=== PATIENT | male | born 1995 | race Hispanic/Latino ===

== ENCOUNTER 2017-09-05 22:18 | Inpatient (IN) | payer OTHER ==
[~2017-09-05] VITALS: Ht 172.7 cm; Wt 61.2 kg
[2017-09-05] MEDS ORDERED: ACETAMINOPHEN 325 MG TAB PO ONE (22:45)
[2017-09-05] MEDS ORDERED: SODIUM CHLORIDE 0.9% 1000ML 1,000 ML IV ONE (22:45)
[2017-09-05 23:00] LABS: BASOPHILS # (AUTO) 0.1 (0.0-0.1); EOSINOPHILS # (AUTO) 0.1 (0.0-0.4); EOSINOPHILS % 1.3 % (0.0-6.0); HEMATOCRIT 38.6 % (38.2-49.6); LYMPHOCYTES # (AUTO) 2.4 (1.0-3.2); LYMPHOCYTES % 37.4 % (18.0-39.1); MEAN CORPUSCULAR HEMOGLOBIN 29.6 pg (28-32); MEAN CORPUSCULAR HGB CONC 33.7 g/dL (31-35); MEAN CORPUSCULAR VOLUME 87.9 fL (81-99); MONOCYTES # (AUTO) 0.5 (0.2-0.8); MONOCYTES % 7.5 % (4.4-11.3); NEUTROPHILS # (AUTO) 3.3 (2.1-6.9); NEUTROPHILS % 52.5 % (38.7-80.0); PLATELET COUNT 589 x10e3/uL (140-360); RED BLOOD COUNT 4.39 x10e6/uL (4.3-5.7); RED CELL DISTRIBUTION WIDTH 14.9 % (11.7-14.4)
--- NOTE | 2017-09-05 23:16 | Diagnostic Imaging Report ---
EXAMINATION: CHEST 2 VIEWS INDICATION: Shortness of breath COMPARISON: None FINDINGS: TUBES and LINES: None. LUNGS: Lungs are well inflated. Lungs are clear. There is no evidence of pneumonia or pulmonary edema. PLEURA: No pleural effusion or pneumothorax. HEART AND MEDIASTINUM: The cardiomediastinal silhouette is unremarkable. BONES AND SOFT TISSUES: No acute osseous lesion. Soft tissues are unremarkable. UPPER ABDOMEN: No free air under the diaphragm. IMPRESSION: No acute thoracic abnormality. Signed by: Dr. Miguel Angel Medrano M.D. on 09/05/2017 11:13 PM
[2017-09-05 23:30] LABS: ALANINE AMINOTRANSFERASE 27 IU/L (0-55); ALBUMIN 4.1 g/dL (3.5-5.0); ALBUMIN/GLOBULIN RATIO 0.9 (0.8-2.0); ALKALINE PHOSPHATASE 117 IU/L (40-150); ANION GAP 15.2 mmol/L (8-16); BLOOD UREA NITROGEN 10 mg/dL (7-26); BUN/CREATININE RATIO 14 (6-25); CALCIUM 10.4 mg/dL (8.4-10.2); CARBON DIOXIDE 29 mmol/L (22-29); CHLORIDE 104 mmol/L (98-107); CREATININE, SERUM 0.74 mg/dL (0.72-1.25); EST GLOMERULAR FILTRATION RATE > 60 ML/MIN (60-); GLUCOSE 112 mg/dL (74-118); POTASSIUM 4.2 mmol/L (3.5-5.1); SODIUM 144 mmol/L (136-145)
[2017-09-05] MEDS ORDERED: IOPAMIDOL 370 MG/ML 200 ML INFUS..BTL INJ ONE (23:59)
[2017-09-05] MEDS ORDERED: SODIUM CHLORIDE 0.9% 50ML 50 ML ONE (23:59)
[2017-09-06] VITALS (9 sets, daily range): BP systolic 106–169; BP diastolic 66–98
[2017-09-06 00:05] LABS: ANISOCYTOSIS SLIGHT; EOSINOPHILS % (MANUAL) 3 % (0-7); LYMPHOCYTES % (MANUAL) 50 % (19-48); MONOCYTES % (MANUAL) 1 % (3.4-9.0); NEUTROPHILS % (MANUAL) 46 % (40-74); PLATELET ESTIMATE MODERATELY INCREASED; PLATELET MORPHOLOGY COMMENT NORMAL; RBC MORPHOLOGY COMMENT NORMAL
--- NOTE | 2017-09-06 01:29 | Diagnostic Imaging Report ---
ADDENDUM #1 EXAM: CT Chest WITH contrast 09/06/2017 12:02 AM INDICATION: Pulmonary embolism. COMPARISON: None TECHNIQUE: Chest was scanned utilizing a multidetector helical scanner from the lung apex through the level of the adrenal glands without administration of IV contrast. Coronal and sagittal reformations were obtained. Pulmonary embolism protocol was performed. IV CONTRAST: 73 mL of Isovue-370 RADIATION DOSE: Total DLP: 505.40 mGy*cm Estimated effective dose: (DLP x 0.014 x size factor) mSv COMPLICATIONS: None FINDINGS: LINES/ TUBES: None. LUNGS AND AIRWAYS: Right upper lobe airspace opacity best visualized on series 3, image 48 compatible with pneumonia. There is a cavitary lesion in the left lower lobe with thick irregular prado measuring approximately 1.8 cm in diameter. Additional similar in appearance. There are lesions are noted in the left lower lobe best seen on series 3, image 74 Airways are normal. PLEURA: The pleural spaces are clear. HEART AND MEDIASTINUM: The thyroid gland is normal. No mediastinal, hilar or axillary lymphadenopathy. The heart is normal in size.. There is no pericardial effusion. UPPER ABDOMEN: Limited non-contrast views of the upper abdomen show no abnormality within the visualized liver, spleen, pancreas, or kidneys. The adrenal glands are normal. BONES: The visualized bony thorax is within normal limits. SOFT TISSUES: Unremarkable. IMPRESSION: 1. No evidence of acute pulmonary embolism. 2. Findings in the right upper lobe are compatible with pneumonia. 3. Cavitary lesions in the left lower lobe are suspicious for atypical mycobacterial infection. Tuberculosis cannot be excluded. Consider isolation. Follow-up after treatment is recommended Signed by: Dr. Miguel Angel Medrano M.D. on 09/06/2017 2:23 AM ORIGINAL REPORT EXAM: CT Chest WITH contrast 09/06/2017 12:02 AM INDICATION: Pulmonary embolism. COMPARISON: None TECHNIQUE: Chest was scanned utilizing a multidetector helical scanner from the lung apex through the level of the adrenal glands without administration of IV contrast. Coronal and sagittal reformations were obtained. Pulmonary embolism protocol was performed. IV CONTRAST: 73 mL of Isovue-370 RADIATION DOSE: Total DLP: 505.40 mGy*cm Estimated effective dose: (DLP x 0.014 x size factor) mSv COMPLICATIONS: None FINDINGS: LINES/ TUBES: None. LUNGS AND AIRWAYS: Right upper lobe airspace opacity best visualized on series 3, image 48 compatible with pneumonia. There is a cavitary lesion in the left lower lobe with thick irregular prado measuring approximately 1.8 cm in diameter. Additional similar in appearance. There are lesions are noted in the left lower lobe best seen on series 3, image 74 Airways are normal. PLEURA: The pleural spaces are clear. HEART AND MEDIASTINUM: The thyroid gland is normal. No mediastinal, hilar or axillary lymphadenopathy. The heart is normal in size.. There is no pericardial effusion. UPPER ABDOMEN: Limited non-contrast views of the upper abdomen show no abnormality within the visualized liver, spleen, pancreas, or kidneys. The adrenal glands are normal. BONES: The visualized bony thorax is within normal limits. SOFT TISSUES: Unremarkable. IMPRESSION: 1. Findings in the right upper lobe are compatible with pneumonia. 2. Cavitary lesions in the left lower lobe are suspicious for atypical mycobacterial infection. Tuberculosis cannot be excluded. Consider isolation. Follow-up after treatment is recommended Signed by: Dr. Miguel Angel Medrano M.D. on 09/06/2017 1:26 AM
[2017-09-06] MEDS ORDERED: ACETAMINOPHEN 325 MG TAB PO PRN (03:15)
[2017-09-06] MEDS ORDERED: MEROPENEM 1 GM VIAL ONE (03:27)
[2017-09-06] MEDS: SODIUM CHLORIDE 0.9% 1000ML 1,000 ML IV SCH ×3 (03:27→23:25)
[2017-09-06 03:55] LABS: CREATINE KINASE MB 0.5 ng/mL (0-5.0)
[2017-09-06] MEDS ORDERED: MEROPENEM 1GM 100 ML IV SCH (06:00)
[2017-09-06 10:01] LABS: CREATINE KINASE 49 IU/L (30-200)
[2017-09-06] MEDS: ALBUTEROL/IPRATROPIUM 3 ML NEB NEB SCH ×2 (13:25→19:37)
[2017-09-06] MEDS: MEROPENEM 1 GM VIAL IV SCH ×2 (13:33→21:14)
--- NOTE | 2017-09-06 14:15 | Diagnostic Imaging Report ---
PROCEDURE:X-RAY MODIFIED BARIUM SWALLOW COMPARISON:None. INDICATIONS:Dysphagia, pneumonia DISCUSSION:Fluoroscopic examination was performed in conjunction with speech pathology, during swallowing of a variety of thin and thick liquid consistencies. Examination showed premature spillage over the base of the tongue and vallecula with all consistencies. Premature spillage to the piriform sinus was noted within liquids and juice portion of mixed mechanical soft diet. No aspiration or penetration. Moderate vallecular and piriform sinus residue is noted with thin pure. CONCLUSION:No penetration or aspiration. Please see the report from speech pathology for complete details. Devang Rodríguez M.D. Dictated by: Devang Rodríguez M.D. on 09/06/2017 at 14:20 Electronically approved by: Devang Rodríguez M.D. on 09/06/2017 at 14:20
[2017-09-06 14:18] LABS: HIV 1&2 AB SCREEN NON-REACTIVE (NONREACTIVE)
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
[2017-09-06 18:26] LABS: CREATINE KINASE 56 IU/L (30-200)
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
[2017-09-06] MEDS: METHYLPREDNISOLONE SOD SUCC 40 MG/ML VIAL IV SCH (21:14)
[2017-09-07] VITALS (38 sets, daily range): BP systolic 93–138; BP diastolic 56–102
[2017-09-07] MEDS: ALBUTEROL/IPRATROPIUM 3 ML NEB NEB SCH ×4 (01:05→19:05)
[2017-09-07] MEDS: MEROPENEM 1 GM VIAL IV SCH ×3 (05:04→22:00)
[2017-09-07 05:38] LABS: BASOPHILS % 0.1 % (0.0-1.0); EOSINOPHILS % 0.1 % (0.0-6.0); HEMATOCRIT 36.9 % (38.2-49.6); HEMOGLOBIN 12.1 g/dL (14.0-18.0); LYMPHOCYTES # (AUTO) 1.4 (1.0-3.2); LYMPHOCYTES % 20.3 % (18.0-39.1); MEAN CORPUSCULAR HEMOGLOBIN 29.4 pg (28-32); MEAN CORPUSCULAR HGB CONC 32.8 g/dL (31-35); MEAN CORPUSCULAR VOLUME 89.8 fL (81-99); MONOCYTES # (AUTO) 0.1 (0.2-0.8); MONOCYTES % 1.7 % (4.4-11.3); NEUTROPHILS # (AUTO) 5.4 (2.1-6.9); NEUTROPHILS % 77.5 % (38.7-80.0); PLATELET COUNT 541 x10e3/uL (140-360); RED BLOOD COUNT 4.11 x10e6/uL (4.3-5.7); RED CELL DISTRIBUTION WIDTH 14.8 % (11.7-14.4)
[2017-09-07 05:55] LABS: INR 1.21; PROTHROMBIN TIME 14.4 seconds (11.9-14.5)
[2017-09-07 05:56] LABS: PARTIAL THROMBOPLASTIN TIME 29.9 seconds (23.8-35.5)
[2017-09-07 06:03] LABS: ALANINE AMINOTRANSFERASE 19 IU/L (0-55); ALBUMIN 3.5 g/dL (3.5-5.0); ALKALINE PHOSPHATASE 105 IU/L (40-150); ANION GAP 11.8 mmol/L (8-16); BLOOD UREA NITROGEN 10 mg/dL (7-26); BUN/CREATININE RATIO 14 (6-25); CALCIUM 9.9 mg/dL (8.4-10.2); CARBON DIOXIDE 27 mmol/L (22-29); CHLORIDE 107 mmol/L (98-107); EST GLOMERULAR FILTRATION RATE > 60 ML/MIN (60-); GLUCOSE 108 mg/dL (74-118); POTASSIUM 3.8 mmol/L (3.5-5.1); SODIUM 142 mmol/L (136-145)
[2017-09-07 06:12] LABS: ALBUMIN/GLOBULIN RATIO 0.9 (0.8-2.0)
[2017-09-07] MEDS ORDERED: LIDOCAINE HCL 4% 50 ML BTL ONE (08:22)
[2017-09-07] MEDS ORDERED: EPINEPHRINE HCL INJ 1 MG/ML AMP ONE (08:22)
[2017-09-07] MEDS ORDERED: LIDOCAINE HCL 2% 30 ML TUBE ONE (08:23)
[2017-09-07] MEDS ORDERED: OXYMETAZOLINE HCL 0.05% NAS 1 SPRAY BTL ONE (08:23)
[2017-09-07] MEDS: METHYLPREDNISOLONE SOD SUCC 40 MG/ML VIAL IV SCH (08:27)
--- NOTE | 2017-09-07 10:17 | Diagnostic Imaging Report ---
PROCEDURE: A single AP view of the chest. COMPARISON: Chest radiograph 09/05/[address] 09/06/17. INDICATIONS: POST BRONCHOSCOPY FINDINGS: Lines/tubes: None. Lungs: No evidence of lobar consolidation or pulmonary edema. Cavitary left lower lobe lesion and right upper lobe pneumonia are better characterized on CT From 09/06/17. Pleura: There is no pleural effusion or pneumothorax. Heart and mediastinum: The cardiomediastinal silhouette is unchanged. Bones: No acute bony abnormality. IMPRESSION: No evidence of pneumothorax post bronchoscopy. Cavitary left lower lobe lesion and right upper lobe pneumonia are better characterized on CT From 09/06/17. Dictated by: HENNY WOODARD M.D. on 09/07/2017 at 10:22 Electronically approved by: HENNY WOODARD M.D. on 09/07/2017 at 10:22
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
[2017-09-07] MEDS ORDERED: LIDOCAINE HCL 2% LOCAL INJ 5 ML SDV VIAL INJ ONE ×2 (11:45→14:57)
[2017-09-07] MEDS ORDERED: DEXAMETHASONE SOD PHOS INJ 4 MG/ML VIAL ONE ×2 (11:45→14:57)
[2017-09-07] MEDS ORDERED: SEVOFLURANE INHAL SOLN 250 ML PEN BTL ONE (11:45)
[2017-09-07] MEDS ORDERED: ONDANSETRON HCL INJ 2 MG/ML VIAL ONE (11:45)
[2017-09-07] MEDS ORDERED: PROPOFOL IV EMULSION 10 MG/ML 20 ML VIAL ONE ×2 (11:45→14:57)
[2017-09-07] MEDS ORDERED: MICROFIBRILLER COLLAGEN HEMOSTAT 1 GM POWDER TP ONE (15:08)
[2017-09-07] MEDS ORDERED: LIDOCAINE 1% W/EPINEPHRINE 20 ML VIAL ONE (15:08)
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
[2017-09-07] MEDS ORDERED: MIDAZOLAM HCL 2 MG/2 ML VIAL ONE ×2 (19:27→19:38)
[2017-09-07] MEDS ORDERED: KETAMINE HCL INJ 50 MG/ML 10 ML VIAL ONE ×2 (19:27→19:38)
[2017-09-07] MEDS ORDERED: FENTANYL CITRATE/PF 100MCG/2 ML INJ ONE (19:38)
[2017-09-07] MEDS: SODIUM CHLORIDE 0.9% 1000ML 1,000 ML IV SCH (22:00)
[2017-09-08] VITALS (46 sets, daily range): BP systolic 93–122; BP diastolic 57–82
[2017-09-08] MEDS: ALBUTEROL/IPRATROPIUM 3 ML NEB NEB SCH ×4 (01:50→19:20)
[2017-09-08] MEDS: SODIUM CHLORIDE 0.9% 1000ML 1,000 ML IV SCH ×2 (03:33→13:00)
[2017-09-08] MEDS: MEROPENEM 1 GM VIAL IV SCH ×3 (05:44→21:32)
[2017-09-08 05:48] LABS: BASOPHILS % 0.2 % (0.0-1.0); HEMATOCRIT 37.4 % (38.2-49.6); HEMOGLOBIN 12.6 g/dL (14.0-18.0); LYMPHOCYTES # (AUTO) 2.3 (1.0-3.2); LYMPHOCYTES % 18.1 % (18.0-39.1); MEAN CORPUSCULAR HEMOGLOBIN 29.7 pg (28-32); MEAN CORPUSCULAR HGB CONC 33.7 g/dL (31-35); MEAN CORPUSCULAR VOLUME 88.2 fL (81-99); MONOCYTES # (AUTO) 0.9 (0.2-0.8); MONOCYTES % 6.6 % (4.4-11.3); NEUTROPHILS # (AUTO) 9.7 (2.1-6.9); NEUTROPHILS % 74.8 % (38.7-80.0); PLATELET COUNT 558 x10e3/uL (140-360); RED BLOOD COUNT 4.24 x10e6/uL (4.3-5.7); RED CELL DISTRIBUTION WIDTH 14.8 % (11.7-14.4)
[2017-09-08 06:04] LABS: ANION GAP 14.6 mmol/L (8-16); BLOOD UREA NITROGEN 14 mg/dL (7-26); BUN/CREATININE RATIO 19 (6-25); CALCIUM 10.1 mg/dL (8.4-10.2); CARBON DIOXIDE 26 mmol/L (22-29); CHLORIDE 105 mmol/L (98-107); CREATININE, SERUM 0.72 mg/dL (0.72-1.25); EST GLOMERULAR FILTRATION RATE > 60 ML/MIN (60-); GLUCOSE 96 mg/dL (74-118); POTASSIUM 3.6 mmol/L (3.5-5.1); SODIUM 142 mmol/L (136-145)
--- NOTE | 2017-09-08 06:55 | Diagnostic Imaging Report ---
ADDENDUM #1 EXAMINATION: CHEST SINGLE (PORTABLE) INDICATION: Pneumonia. COMPARISON: 09/07/2017 FINDINGS: TUBES and LINES: Tracheostomy tube is present with tip just 0.5 cm above the dany. Repositioning is recommended. LUNGS: Complete collapse of the left lung the right lung is clear. There is no evidence of pneumonia or pulmonary edema. PLEURA: Large left pneumothorax HEART AND MEDIASTINUM: The cardiomediastinal silhouette is remarkable for air along the mediastinum and supraclavicular soft tissues.. BONES AND SOFT TISSUES: No acute osseous lesion. Supraclavicular emphysematous changes. UPPER ABDOMEN: No free air under the diaphragm. Metallic densities in the left upper quadrant IMPRESSION: 1. Status post intubation. Endotracheal tube should be repositioned. 2. Large left pneumothorax with evidence of pneumomediastinum and supraclavicular subcutaneous emphysema 3. Dr. Marrufo was paged at 6:54 AM on 09/08/2017. Details were discussed with Dr. Marrufo on 09/08/2017 at 6:59 AM. Signed by: Dr. Lai Mccormick M.D. on 09/08/2017 7:14 AM ORIGINAL REPORT EXAMINATION: CHEST SINGLE (PORTABLE) INDICATION: Pneumonia. COMPARISON: 09/07/2017 FINDINGS: TUBES and LINES: Endotracheal tube is present with tip just 0.5 cm above the dany. Repositioning is recommended. LUNGS: Complete collapse of the left lung the right lung is clear. There is no evidence of pneumonia or pulmonary edema. PLEURA: Large left pneumothorax HEART AND MEDIASTINUM: The cardiomediastinal silhouette is remarkable for air along the mediastinum and supraclavicular soft tissues.. BONES AND SOFT TISSUES: No acute osseous lesion. Supraclavicular emphysematous changes. UPPER ABDOMEN: No free air under the diaphragm. Metallic densities in the left upper quadrant IMPRESSION: 1. Status post intubation. Endotracheal tube should be repositioned. 2. Large left pneumothorax with evidence of pneumomediastinum and supraclavicular subcutaneous emphysema 3. Dr. Marrufo was paged at 6:54 AM on 09/08/2017. Details were discussed with Dr. Marrufo on 09/08/2017 at 6:59 AM. Signed by: Dr. Miguel Angel Medrano M.D. on 09/08/2017 6:59 AM
[2017-09-08] MEDS ORDERED: LIDOCAINE HCL 2% LOCAL 20 ML VIAL ONE (07:38)
--- NOTE | 2017-09-08 10:51 | Diagnostic Imaging Report ---
Examination: Single AP view of the chest. COMPARISON: 09/08/2017 INDICATION: Chest tube placement DISCUSSION: Lines/tubes: Tracheostomy tube. Interval placement of left-sided chest tube. Lungs: Improved aeration of the left lung. Pleura: Small residual pneumothorax likely best seen along the left heart border Heart and mediastinum: The heart and the mediastinum are unremarkable. Bones and soft tissues: No acute bony abnormalities. Degenerative changes in the thoracic spine. IMPRESSION: Chest tube placement with near complete resolution of the left pneumothorax Signed by: Dr. Lai Mccormick M.D. on 09/08/2017 10:47 AM
[2017-09-08] MEDS: ACETYLCYSTEINE 20% INHAL SOLN 30 ML VIAL INH SCH ×2 (11:00→19:20)
[2017-09-08] MEDS: HYDROMORPHONE 1MG/1ML INJ IV PRN ×3 (11:10→16:15)
[2017-09-08] MEDS: METHYLPREDNISOLONE SOD SUCC 40 MG/ML VIAL IV SCH (12:30)
--- NOTE | 2017-09-08 16:25 | Progress Note ---
DATE: INTERNAL MEDICINE PROGRESS NOTE SUBJECTIVE: Patient is doing really well. She had a tracheostomy. She had a chest tube on the left secondary to left lung collapse. Keeping oxygen saturation 96%. PHYSICAL EXAMINATION VITAL SIGNS: Blood pressure is 108/68. Temperature is 98.4 degrees. The heart rate is 71 per minute. Respiratory rate is 18 per minute. HEART: Regular rhythm. Normal S1, S2 sounds. LUNGS: Clear bilaterally. ABDOMEN: Soft. EXTREMITIES: No evidence of cyanosis, edema or trauma. BLOOD WORK: BMP: Sodium 142, potassium 3.6, chloride 105, CO2 26, BUN 14, creatinine 0.72. Glucose 96. CBC: White blood count 12.9, hemoglobin 12.6, hematocrit 37.4, platelet 558,000. PT 14.4, INR 1.21, PTT 29.9. AST 19, ALT 19, total bilirubin 1.2, and alkaline phosphatase 105. FINAL IMPRESSION 1. Acute respiratory failure secondary to pneumothorax. 2. Left pneumothorax, status post chest tube placement. 3. Leukocytosis. 4. Cavitary lesions in the lungs, rule out tuberculosis. PLAN OF TREATMENT: We are going to continue albuterol and Atrovent q.6 h., normal saline 75 mL an hour, Tylenol 650 mg q.4 h. as needed, meropenem 1 gram IV q.8 h., heparin 5,000 units subcutaneously twice a day for DVT prophylaxis, q.6 h., Dilaudid 0.5 mg IV q.3 h. as needed, Solu-Medrol 20 mg IV daily. I discussed the case with the family at the bedside and nurse and answered all their questions. Time spent around 55 minutes. Job#: [id number]
[2017-09-08] MEDS: HEPARIN SOD (PORCINE) 5,000 UNIT/ML VIAL SC SCH (20:33)
[2017-09-09] VITALS (42 sets, daily range): BP systolic 96–127; BP diastolic 60–89
[2017-09-09] MEDS: ACETYLCYSTEINE 20% INHAL SOLN 30 ML VIAL INH SCH ×4 (01:30→19:15)
[2017-09-09] MEDS: ALBUTEROL/IPRATROPIUM 3 ML NEB NEB SCH ×4 (01:30→19:15)
[2017-09-09 05:19] LABS: BASOPHILS % 0.4 % (0.0-1.0); HEMATOCRIT 41.1 % (38.2-49.6); HEMOGLOBIN 13.3 g/dL (14.0-18.0); LYMPHOCYTES # (AUTO) 2.2 (1.0-3.2); LYMPHOCYTES % 30.2 % (18.0-39.1); MEAN CORPUSCULAR HEMOGLOBIN 29.8 pg (28-32); MEAN CORPUSCULAR HGB CONC 32.4 g/dL (31-35); MEAN CORPUSCULAR VOLUME 91.9 fL (81-99); MONOCYTES # (AUTO) 0.5 (0.2-0.8); MONOCYTES % 7.5 % (4.4-11.3); NEUTROPHILS # (AUTO) 4.4 (2.1-6.9); NEUTROPHILS % 61.6 % (38.7-80.0); PLATELET COUNT 500 x10e3/uL (140-360); RED BLOOD COUNT 4.47 x10e6/uL (4.3-5.7); RED CELL DISTRIBUTION WIDTH 14.6 % (11.7-14.4)
[2017-09-09] MEDS: SODIUM CHLORIDE 0.9% 1000ML 1,000 ML IV SCH ×2 (05:47→20:50)
[2017-09-09] MEDS: MEROPENEM 1 GM VIAL IV SCH ×3 (05:47→21:29)
[2017-09-09 05:50] LABS: ANION GAP 13.4 mmol/L (8-16); BLOOD UREA NITROGEN 17 mg/dL (7-26); BUN/CREATININE RATIO 24 (6-25); CARBON DIOXIDE 28 mmol/L (22-29); CHLORIDE 106 mmol/L (98-107); CREATININE, SERUM 0.71 mg/dL (0.72-1.25); EST GLOMERULAR FILTRATION RATE > 60 ML/MIN (60-); GLUCOSE 82 mg/dL (74-118); POTASSIUM 3.4 mmol/L (3.5-5.1); SODIUM 144 mmol/L (136-145)
--- NOTE | 2017-09-09 06:55 | Diagnostic Imaging Report ---
EXAMINATION: CHEST SINGLE (PORTABLE) INDICATION: Chest tube placement COMPARISON: 09/08/2017 FINDINGS: TUBES and LINES: Interval placement of anterior left chest tube entering the chest at the second intercostal space anteriorly. Tracheostomy tube remains low with 8.6 mm above the dany LUNGS: Lungs are well inflated. Lungs are clear. There is no evidence of pneumonia or pulmonary edema. PLEURA: Minimal left pneumothorax present. HEART AND MEDIASTINUM: The cardiomediastinal silhouette is remarkable for minimal pneumomediastinum. BONES AND SOFT TISSUES: No acute osseous lesion. Subcutaneous emphysema is unchanged. UPPER ABDOMEN: No free air under the diaphragm. IMPRESSION: 1. Near complete reexpansion of the lung with minimal pneumothorax and pneumomediastinum. 2. Tracheostomy tube remains low with tip 8.6 mm above the dany Signed by: Dr. Miguel Angel Medrano M.D. on 09/09/2017 6:51 AM
[2017-09-09] MEDS ORDERED: ACETYLCYSTEINE 200 MG/ML 4ML VIAL ONE (10:31)
[2017-09-09] MEDS: HEPARIN SOD (PORCINE) 5,000 UNIT/ML VIAL SC SCH ×2 (13:45→21:28)
[2017-09-09] MEDS: METHYLPREDNISOLONE SOD SUCC 40 MG/ML VIAL IV SCH (13:45)
[2017-09-09] MEDS ORDERED: POTASSIUM CHLORIDE 20 MEQ TAB CR PO ONE (14:00)
[2017-09-09] MEDS ORDERED: POTASSIUM CHLORIDE 20MEQ/100ML 200 ML IV ONE (14:30)
--- NOTE | 2017-09-09 15:41 | Progress Note ---
DATE: INTERNAL MEDICINE PROGRESS NOTE SUBJECTIVE: Patient is doing well. No significant complaint today. PHYSICAL EXAMINATION VITAL SIGNS: Blood pressure 123/70. Temperature 98.7, heart rate 76 per minute. Respiratory rate 16 per minute. Oxygen saturation 98%. HEART: Regular rhythm. Normal S1, S2 sounds. LUNGS: Clear bilaterally. ABDOMEN: Soft. EXTREMITIES: No evidence of cyanosis, edema or trauma. LABS: On the BMP, sodium 144, potassium 3.4, chloride 106, CO2 28. BUN 17, creatinine 0.71. Glucose 82. On the CBC, white blood count 7.18, hemoglobin 13.3, hematocrit 41.1, platelet count 400,000. PT 14.4, PTT 29.9, INR 1.21. AST 19, ALT 19, total bilirubin 1.2, alkaline phosphatase 105. FINAL IMPRESSION 1. Pneumonia, possible aspiration. 2. Pneumothorax, status post left chest tube placement. 3. Rule out tuberculosis. 4. Hypokalemia. PLAN OF TREATMENT: Continue albuterol and Atrovent q.6 h. Continue normal saline 75 mL an hour. Continue Tylenol 650 mg q.4 h. as needed for pain or fever. Meropenem 1 gram IV q.8 h., Mucomyst q.6 h., Dilaudid 0.5 mg q.3 h. as needed, methylprednisolone 20 mg IV once a day, heparin 5,000 units subcutaneously twice a day for DVT prophylaxis. I answered questions from the family. Potassium is going to be replaced. We are going to recheck BNP and magnesium level. Dr. Marrufo is planning to do a bronchoscopy hopefully on Sunday. Dr. Fritz Koch will resume the care starting tomorrow, Sunday, at 7 a.m. Job#: [id number]
[2017-09-09] MEDS: HYDROMORPHONE 1MG/1ML INJ IV PRN (17:29)
[2017-09-10] VITALS (46 sets, daily range): BP systolic 101–139; BP diastolic 63–93
--- NOTE | 2017-09-10 00:53 | Progress Note ---
DATE: September 09, 2017 PROGRESS NOTE He is doing better. There is no new complaint. PHYSICAL EXAMINATION GENERAL: Patient is currently alert, oriented. Does not seem to be in acute distress. VITALS: Stable. Afebrile. HEENT: Anicteric. NECK: Supple. CHEST: Clear. ABDOMEN: Soft. ASSESSMENT 1. Pneumonia, aspiration, doing better, bronchoscopy to be done tomorrow to rule out mycobacterium. 2. Tracheal stenosis, status post tracheostomy. Will follow. Job#: [id number] CQ
[2017-09-10] MEDS: ACETYLCYSTEINE 20% INHAL SOLN 30 ML VIAL INH SCH ×3 (01:20→13:30)
[2017-09-10] MEDS: ALBUTEROL/IPRATROPIUM 3 ML NEB NEB SCH ×4 (01:20→19:20)
[2017-09-10 04:51] LABS: BASOPHILS % 0.3 % (0.0-1.0); EOSINOPHILS % 0.1 % (0.0-6.0); HEMATOCRIT 37.2 % (38.2-49.6); HEMOGLOBIN 12.2 g/dL (14.0-18.0); LYMPHOCYTES # (AUTO) 2.1 (1.0-3.2); LYMPHOCYTES % 30.3 % (18.0-39.1); MEAN CORPUSCULAR HEMOGLOBIN 29.3 pg (28-32); MEAN CORPUSCULAR HGB CONC 32.8 g/dL (31-35); MEAN CORPUSCULAR VOLUME 89.4 fL (81-99); MONOCYTES # (AUTO) 0.5 (0.2-0.8); MONOCYTES % 7.6 % (4.4-11.3); NEUTROPHILS # (AUTO) 4.3 (2.1-6.9); NEUTROPHILS % 61.4 % (38.7-80.0); PLATELET COUNT 417 x10e3/uL (140-360); RED BLOOD COUNT 4.16 x10e6/uL (4.3-5.7); RED CELL DISTRIBUTION WIDTH 13.9 % (11.7-14.4)
[2017-09-10 05:15] LABS: ANION GAP 14.4 mmol/L (8-16); BLOOD UREA NITROGEN 13 mg/dL (7-26); BUN/CREATININE RATIO 20 (6-25); CALCIUM 9.5 mg/dL (8.4-10.2); CARBON DIOXIDE 26 mmol/L (22-29); CHLORIDE 106 mmol/L (98-107); CREATININE, SERUM 0.66 mg/dL (0.72-1.25); EST GLOMERULAR FILTRATION RATE > 60 ML/MIN (60-); GLUCOSE 77 mg/dL (74-118); POTASSIUM 3.4 mmol/L (3.5-5.1); SODIUM 143 mmol/L (136-145)
[2017-09-10] MEDS: MEROPENEM 1 GM VIAL IV SCH ×3 (06:08→22:00)
[2017-09-10] MEDS: METHYLPREDNISOLONE SOD SUCC 40 MG/ML VIAL IV SCH (07:25)
[2017-09-10] MEDS: SODIUM CHLORIDE 0.9% 1000ML 1,000 ML IV SCH (07:26)
[2017-09-10] MEDS: POTASSIUM CHLORIDE 20MEQ/100ML 100 ML IV PRN (09:55)
[2017-09-10] MEDS ORDERED: POTASSIUM CHLORIDE 10 MEQ TABCR PO ONE (13:00)
--- NOTE | 2017-09-10 14:15 | Diagnostic Imaging Report ---
PROCEDURE:X-RAY MODIFIED BARIUM SWALLOW COMPARISON:None. INDICATIONS:Not provided. TECHNIQUE/FINDINGS:Fluoroscopic examination was performed in conjunction with speech pathology, during swallowing of a variety of thin and thick liquid consistencies, demonstrating no penetration or aspiration. CONCLUSION:No demonstrated penetration or aspiration. Please see the report from speech pathology for complete details. Dictated by: HENNY WOODARD M.D. on 09/10/2017 at 14:20 Electronically approved by: HENNY WOODARD M.D. on 09/10/2017 at 14:20
[2017-09-11] VITALS (70 sets, daily range): BP systolic 101–142; BP diastolic 64–97
[2017-09-11] MEDS: ALBUTEROL/IPRATROPIUM 3 ML NEB NEB SCH ×4 (01:15→20:15)
[2017-09-11 04:59] LABS: BASOPHILS % 0.5 % (0.0-1.0); EOSINOPHILS # (AUTO) 0.1 (0.0-0.4); EOSINOPHILS % 1.4 % (0.0-6.0); HEMATOCRIT 36.8 % (38.2-49.6); HEMOGLOBIN 12.5 g/dL (14.0-18.0); LYMPHOCYTES # (AUTO) 2.4 (1.0-3.2); LYMPHOCYTES % 37.6 % (18.0-39.1); MEAN CORPUSCULAR HEMOGLOBIN 29.6 pg (28-32); MONOCYTES # (AUTO) 0.6 (0.2-0.8); MONOCYTES % 9.1 % (4.4-11.3); NEUTROPHILS # (AUTO) 3.3 (2.1-6.9); NEUTROPHILS % 51.2 % (38.7-80.0); PLATELET COUNT 438 x10e3/uL (140-360); RED BLOOD COUNT 4.23 x10e6/uL (4.3-5.7); RED CELL DISTRIBUTION WIDTH 13.8 % (11.7-14.4)
[2017-09-11 05:22] LABS: ALANINE AMINOTRANSFERASE 13 IU/L (0-55); ALBUMIN 3.4 g/dL (3.5-5.0); ALKALINE PHOSPHATASE 94 IU/L (40-150); ANION GAP 12.1 mmol/L (8-16); BLOOD UREA NITROGEN 14 mg/dL (7-26); BUN/CREATININE RATIO 21 (6-25); CALCIUM 9.5 mg/dL (8.4-10.2); CARBON DIOXIDE 27 mmol/L (22-29); CHLORIDE 104 mmol/L (98-107); CREATININE, SERUM 0.67 mg/dL (0.72-1.25); EST GLOMERULAR FILTRATION RATE > 60 ML/MIN (60-); GLUCOSE 94 mg/dL (74-118); POTASSIUM 3.1 mmol/L (3.5-5.1); SODIUM 140 mmol/L (136-145)
[2017-09-11] MEDS: MEROPENEM 1 GM VIAL IV SCH ×3 (06:32→21:37)
[2017-09-11] MEDS ORDERED: POTASSIUM CHLORIDE 20 MEQ TAB CR PO NR ×3 (06:40→08:45)
--- NOTE | 2017-09-11 06:44 | Diagnostic Imaging Report ---
EXAM: CHEST SINGLE (PORTABLE), AP 1 view INDICATION: Trach COMPARISON: AP view of the chest September 09, 2017 FINDINGS: LINES/TUBES: Stable tracheostomy tube. Stable left chest tube. LUNGS: Pulmonary lesions described on prior CT are not visible on this x-ray. PLEURA: Trace residual left pneumothorax. HEART AND MEDIASTINUM: Normal size and contour. BONES AND SOFT TISSUES: Neck subcutaneous edema. IMPRESSION: Trace residual left pneumothorax. Signed by: Dr. Lyudmila Jose M.D. on 09/11/2017 6:40 AM
[2017-09-11] MEDS: POTASSIUM CHLORIDE 20MEQ/100ML 100 ML IV PRN (08:05)
[2017-09-11] MEDS: METHYLPREDNISOLONE SOD SUCC 40 MG/ML VIAL IV SCH (08:05)
[2017-09-11] MEDS ORDERED: LIDOCAINE HCL 4% 50 ML BTL ONE (08:50)
[2017-09-11] MEDS ORDERED: ACETYLCYSTEINE 200 MG/ML 4ML VIAL ONE (08:50)
[2017-09-11] MEDS ORDERED: LIDOCAINE HCL 2% 30 ML TUBE ONE (08:51)
[2017-09-11] MEDS ORDERED: OXYMETAZOLINE HCL 0.05% NAS 1 SPRAY BTL ONE (08:51)
--- NOTE | 2017-09-11 12:01 | Diagnostic Imaging Report ---
PROCEDURE: A single AP view of the chest. COMPARISON: Chest radiograph 09/11/17 at 531AM. INDICATIONS: POST BRONCHOSCOPY FINDINGS: Lines/tubes: Stable tracheostomy tube and left chest tube. Lungs: Moderate lung volumes. There is no evidence of pneumonia or pulmonary edema. Patchy bibasilar opacity, likely atelectasis. Pulmonary lesions described on prior chest CT are not visible on this radiograph. Pleura: Persistent trace residual left pneumothorax. No evidence of pleural effusion. Heart and mediastinum: The cardiomediastinal silhouette is unchanged. Bones: No acute bony abnormality. IMPRESSION: Left chest tube in place with trace residual left pneumothorax, similar to prior radiograph. Dictated by: HENNY WOODARD M.D. on 09/11/2017 at 12:07 Electronically approved by: HENNY WOODARD M.D. on 09/11/2017 at 12:07
[2017-09-11] MEDS: GUAIFENESIN/DEXTROMETHORPHAN LIQD 5 ML UDC NG PRN ×3 (12:30→21:37)
--- NOTE | 2017-09-11 13:19 | Diagnostic Imaging Report ---
PROCEDURE:FLUORO ASSIST LITHO/BROCH/ERCP TECHNIQUE: INDICATION: COMPARISON:None. FINDINGS: CONCLUSION: Dictated by: HENNY WOODARD M.D. on 09/11/2017 at 13:24 Electronically approved by: HENNY WOODARD M.D. on 09/11/2017 at 13:24
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
[2017-09-11] MEDS ORDERED: ONDANSETRON HCL INJ 2 MG/ML VIAL ONE (14:14)
[2017-09-11] MEDS ORDERED: SEVOFLURANE INHAL SOLN 250 ML PEN BTL ONE (14:14)
[2017-09-11] MEDS: HEPARIN SOD (PORCINE) 5,000 UNIT/ML VIAL SC SCH (21:30)
[2017-09-12] VITALS (52 sets, daily range): BP systolic 75–126; BP diastolic 52–105
[2017-09-12] MEDS: ALBUTEROL/IPRATROPIUM 3 ML NEB NEB SCH ×4 (00:45→19:15)
[2017-09-12 04:41] LABS: BASOPHILS % 0.4 % (0.0-1.0); EOSINOPHILS # (AUTO) 0.1 (0.0-0.4); EOSINOPHILS % 1.6 % (0.0-6.0); HEMATOCRIT 39.4 % (38.2-49.6); HEMOGLOBIN 13.3 g/dL (14.0-18.0); LYMPHOCYTES % 36.9 % (18.0-39.1); MEAN CORPUSCULAR HEMOGLOBIN 29.6 pg (28-32); MEAN CORPUSCULAR HGB CONC 33.8 g/dL (31-35); MEAN CORPUSCULAR VOLUME 87.8 fL (81-99); MONOCYTES # (AUTO) 0.7 (0.2-0.8); MONOCYTES % 9.1 % (4.4-11.3); NEUTROPHILS # (AUTO) 4.2 (2.1-6.9); NEUTROPHILS % 51.9 % (38.7-80.0); PLATELET COUNT 433 x10e3/uL (140-360); RED BLOOD COUNT 4.49 x10e6/uL (4.3-5.7); RED CELL DISTRIBUTION WIDTH 13.8 % (11.7-14.4)
[2017-09-12 05:07] LABS: ANION GAP 12.8 mmol/L (8-16); BLOOD UREA NITROGEN 10 mg/dL (7-26); BUN/CREATININE RATIO 13 (6-25); CALCIUM 9.8 mg/dL (8.4-10.2); CARBON DIOXIDE 28 mmol/L (22-29); CHLORIDE 105 mmol/L (98-107); CREATININE, SERUM 0.77 mg/dL (0.72-1.25); EST GLOMERULAR FILTRATION RATE > 60 ML/MIN (60-); GLUCOSE 93 mg/dL (74-118); POTASSIUM 3.8 mmol/L (3.5-5.1); SODIUM 142 mmol/L (136-145)
[2017-09-12] MEDS: MEROPENEM 1 GM VIAL IV SCH ×3 (05:56→21:44)
--- NOTE | 2017-09-12 06:17 | Diagnostic Imaging Report ---
EXAM: CHEST SINGLE (PORTABLE), AP 1 view INDICATION: Cavitary lesion COMPARISON: September 11, 2017 FINDINGS: LINES/TUBES: Stable tracheostomy and left chest tube LUNGS: Pulmonary lesions described on prior CT are not well-visualized on this x-ray PLEURA: Trace residual left apical pneumothorax. HEART AND MEDIASTINUM: Normal size and contour. BONES AND SOFT TISSUES: Persistent neck subcutaneous emphysema, left greater than right. IMPRESSION: Persistent trace left apical pneumothorax. Signed by: Dr. Lyudmila Jose M.D. on 09/12/2017 6:14 AM
[2017-09-12] MEDS: METHYLPREDNISOLONE SOD SUCC 40 MG/ML VIAL IV SCH (08:33)
[2017-09-12] MEDS: HEPARIN SOD (PORCINE) 5,000 UNIT/ML VIAL SC SCH ×2 (09:23→21:44)
[2017-09-12] MEDS ORDERED: METOPROLOL TARTRATE INJ 1 MG/ML VIAL ONE (14:03)
[2017-09-12] MEDS ORDERED: METOPROLOL TARTRATE INJ 1 MG/ML VIAL IV ONE (15:00)
[2017-09-13] VITALS (12 sets, daily range): BP systolic 95–129; BP diastolic 61–94
[2017-09-13] MEDS: ALBUTEROL/IPRATROPIUM 3 ML NEB NEB SCH ×4 (02:09→19:30)
[2017-09-13 05:05] LABS: BASOPHILS % 0.4 % (0.0-1.0); EOSINOPHILS # (AUTO) 0.1 (0.0-0.4); EOSINOPHILS % 1.8 % (0.0-6.0); HEMATOCRIT 40.2 % (38.2-49.6); HEMOGLOBIN 13.5 g/dL (14.0-18.0); LYMPHOCYTES # (AUTO) 2.8 (1.0-3.2); LYMPHOCYTES % 35.4 % (18.0-39.1); MEAN CORPUSCULAR HEMOGLOBIN 29.5 pg (28-32); MEAN CORPUSCULAR HGB CONC 33.6 g/dL (31-35); MEAN CORPUSCULAR VOLUME 87.8 fL (81-99); MONOCYTES # (AUTO) 0.7 (0.2-0.8); NEUTROPHILS # (AUTO) 4.2 (2.1-6.9); NEUTROPHILS % 53.1 % (38.7-80.0); PLATELET COUNT 409 x10e3/uL (140-360); RED BLOOD COUNT 4.58 x10e6/uL (4.3-5.7); RED CELL DISTRIBUTION WIDTH 13.4 % (11.7-14.4)
[2017-09-13 05:23] LABS: BLOOD UREA NITROGEN 12 mg/dL (7-26); BUN/CREATININE RATIO 16 (6-25); CALCIUM 9.9 mg/dL (8.4-10.2); CARBON DIOXIDE 29 mmol/L (22-29); CHLORIDE 103 mmol/L (98-107); CREATININE, SERUM 0.75 mg/dL (0.72-1.25); EST GLOMERULAR FILTRATION RATE > 60 ML/MIN (60-); GLUCOSE 96 mg/dL (74-118); SODIUM 141 mmol/L (136-145)
[2017-09-13] MEDS: MEROPENEM 1 GM VIAL IV SCH (05:28)
[2017-09-13] MEDS: METHYLPREDNISOLONE SOD SUCC 40 MG/ML VIAL IV SCH (08:25)
[2017-09-13] MEDS: HEPARIN SOD (PORCINE) 5,000 UNIT/ML VIAL SC SCH ×2 (09:43→23:45)
[2017-09-14] VITALS (8 sets, daily range): BP systolic 88–125; BP diastolic 53–96
[2017-09-14] MEDS: ALBUTEROL/IPRATROPIUM 3 ML NEB NEB SCH ×4 (00:30→18:30)
[2017-09-14] MEDS: HEPARIN SOD (PORCINE) 5,000 UNIT/ML VIAL SC SCH ×2 (09:37→21:00)
[2017-09-14] MEDS ORDERED: MEROPENEM 1GM 100 ML IV SCH (14:00)
[2017-09-14] MEDS: MEROPENEM 1 GM VIAL IV SCH ×2 (14:50→20:44)
--- NOTE | 2017-09-14 15:46 | Diagnostic Imaging Report ---
PROCEDURE: Frontal and lateral views of the chest. COMPARISON: Multiple priors. CT of the chest from 09/06/2017. Chest radiograph from 09/11/2017. INDICATIONS: TRACH, SOB, PNEUMONIA FINDINGS: Lines/tubes: Tracheostomy tube is in place. Lungs: The left lower lobe cavitary lesion is better seen on prior CT. No new consolidations. Pleura: There is no pleural effusion. No significant sized pneumothorax is identified. Heart and mediastinum: The heart and the mediastinum are normal. Bones: No acute bony abnormality. Residual contrast material is seen in the colon. IMPRESSION: No significant sized pneumothorax is identified. The previously described left lower lobe cavitary lesion is better seen on prior CT. No new consolidation. Dictated by: Holland Guerra M.D. on 09/14/2017 at 15:51 Electronically approved by: Holland Guerra M.D. on 09/14/2017 at 15:51
[2017-09-15] VITALS (9 sets, daily range): BP systolic 110–128; BP diastolic 69–82
[2017-09-15] MEDS: ALBUTEROL/IPRATROPIUM 3 ML NEB NEB SCH ×4 (00:20→19:30)
[2017-09-15] MEDS: MEROPENEM 1 GM VIAL IV SCH ×3 (05:56→21:00)
[2017-09-15 06:03] LABS: BASOPHILS % 0.3 % (0.0-1.0); EOSINOPHILS # (AUTO) 0.2 (0.0-0.4); EOSINOPHILS % 2.2 % (0.0-6.0); HEMATOCRIT 40.1 % (38.2-49.6); HEMOGLOBIN 13.4 g/dL (14.0-18.0); LYMPHOCYTES # (AUTO) 2.6 (1.0-3.2); LYMPHOCYTES % 32.3 % (18.0-39.1); MEAN CORPUSCULAR HEMOGLOBIN 29.5 pg (28-32); MEAN CORPUSCULAR HGB CONC 33.4 g/dL (31-35); MEAN CORPUSCULAR VOLUME 88.3 fL (81-99); MONOCYTES # (AUTO) 0.7 (0.2-0.8); MONOCYTES % 8.6 % (4.4-11.3); NEUTROPHILS # (AUTO) 4.5 (2.1-6.9); NEUTROPHILS % 56.2 % (38.7-80.0); PLATELET COUNT 313 x10e3/uL (140-360); RED BLOOD COUNT 4.54 x10e6/uL (4.3-5.7); RED CELL DISTRIBUTION WIDTH 13.4 % (11.7-14.4)
[2017-09-15 06:17] LABS: ALANINE AMINOTRANSFERASE 19 IU/L (0-55); ALBUMIN 3.6 g/dL (3.5-5.0); ALBUMIN/GLOBULIN RATIO 1.1 (0.8-2.0); ALKALINE PHOSPHATASE 106 IU/L (40-150); ANION GAP 12.6 mmol/L (8-16); BLOOD UREA NITROGEN 9 mg/dL (7-26); BUN/CREATININE RATIO 13 (6-25); CALCIUM 9.8 mg/dL (8.4-10.2); CARBON DIOXIDE 27 mmol/L (22-29); CHLORIDE 104 mmol/L (98-107); CREATININE, SERUM 0.72 mg/dL (0.72-1.25); EST GLOMERULAR FILTRATION RATE > 60 ML/MIN (60-); GLUCOSE 87 mg/dL (74-118); POTASSIUM 3.6 mmol/L (3.5-5.1); SODIUM 140 mmol/L (136-145)
[2017-09-15] MEDS: HEPARIN SOD (PORCINE) 5,000 UNIT/ML VIAL SC SCH (09:23)
[2017-09-16] VITALS (8 sets, daily range): BP systolic 110–129; BP diastolic 72–92
[2017-09-16] MEDS: ALBUTEROL/IPRATROPIUM 3 ML NEB NEB SCH ×4 (00:50→19:30)
[2017-09-16] MEDS: MEROPENEM 1 GM VIAL IV SCH ×3 (05:00→22:36)
[2017-09-17] VITALS: BP 128/79
[2017-09-17 04:00] VITALS: BP 110/59
[2017-09-17 05:13] LABS: BASOPHILS % 0.3 % (0.0-1.0); EOSINOPHILS # (AUTO) 0.2 (0.0-0.4); EOSINOPHILS % 2.2 % (0.0-6.0); HEMOGLOBIN 13.3 g/dL (14.0-18.0); LYMPHOCYTES # (AUTO) 2.2 (1.0-3.2); LYMPHOCYTES % 32.6 % (18.0-39.1); MEAN CORPUSCULAR HEMOGLOBIN 29.9 pg (28-32); MEAN CORPUSCULAR HGB CONC 34.1 g/dL (31-35); MEAN CORPUSCULAR VOLUME 87.6 fL (81-99); MONOCYTES # (AUTO) 0.5 (0.2-0.8); MONOCYTES % 8.1 % (4.4-11.3); NEUTROPHILS # (AUTO) 3.8 (2.1-6.9); NEUTROPHILS % 56.5 % (38.7-80.0); PLATELET COUNT 259 x10e3/uL (140-360); RED BLOOD COUNT 4.45 x10e6/uL (4.3-5.7); RED CELL DISTRIBUTION WIDTH 13.1 % (11.7-14.4)
[2017-09-17 05:26] LABS: ANION GAP 13.7 mmol/L (8-16); BLOOD UREA NITROGEN 9 mg/dL (7-26); BUN/CREATININE RATIO 13 (6-25); CALCIUM 9.7 mg/dL (8.4-10.2); CARBON DIOXIDE 25 mmol/L (22-29); CHLORIDE 105 mmol/L (98-107); CREATININE, SERUM 0.69 mg/dL (0.72-1.25); EST GLOMERULAR FILTRATION RATE > 60 ML/MIN (60-); GLUCOSE 99 mg/dL (74-118); POTASSIUM 3.7 mmol/L (3.5-5.1); SODIUM 140 mmol/L (136-145)
[2017-09-17] MEDS: MEROPENEM 1 GM VIAL IV SCH ×2 (06:26→14:42)
--- NOTE | 2017-09-17 06:37 | Diagnostic Imaging Report ---
EXAM: CHEST SINGLE (PORTABLE), AP 1 view INDICATION: Pneumonia COMPARISON: AP view of the chest September 12, 2017 FINDINGS: LINES/TUBES: Interval removal of left chest tube. Stable tracheostomy tube. LUNGS: Pulmonary lesions described on prior CT are not well-visualized on this x-ray PLEURA: No effusions or pneumothorax. HEART AND MEDIASTINUM: Normal size and contour. BONES AND SOFT TISSUES: No acute findings. IMPRESSION: No evidence of a pneumothorax. Signed by: Dr. Lyudmila Jose M.D. on 09/17/2017 6:34 AM
[2017-09-17] MEDS: ALBUTEROL/IPRATROPIUM 3 ML NEB NEB SCH ×4 (07:57→19:11)
[2017-09-17 09:00] VITALS: BP 94/62
[2017-09-17 12:00] VITALS: BP 105/78
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
[2017-09-17] MEDS ORDERED: AUGMENTIN 875-1 EACH PO (15:16)
[2017-09-17] MEDS ORDERED: IPRAT-ALBUT 0.5-3 ML INH (15:20)
[2017-09-17 16:00] VITALS: BP 140/86
== END 2017-09-17 20:55 | disposition home or self-care (01) | DRG 4 ==
LOC: ER 22:18 → ERHOLD 09-06 03:15 → MED/SURG3 09-06 05:15 → ICU 09-07 11:32 → MED/SURG3 09-13 10:10
PROC: 0BJ08ZZ Inspection of Tracheobronchial Tree, Via Natural or Artificial Opening Endoscopic (ICD-10-PCS; 2017-09-07)
PROC: 0B110F4 Bypass Trachea to Cutaneous with Tracheostomy Device, Open Approach (ICD-10-PCS; principal; 2017-09-07 09:00)
PROC: 0W9B30Z Drainage of Left Pleural Cavity with Drainage Device, Percutaneous Approach (ICD-10-PCS; 2017-09-08)
PROC: 0BDB8ZX Extraction of Left Lower Lobe Bronchus, Via Natural or Artificial Opening Endoscopic, Diagnostic (ICD-10-PCS; 2017-09-11)
PROC: 0B9J8ZX Drainage of Left Lower Lung Lobe, Via Natural or Artificial Opening Endoscopic, Diagnostic (ICD-10-PCS; 2017-09-11 10:20)
PROC: 0BW1XFZ Revision of Tracheostomy Device in Trachea, External Approach (ICD-10-PCS; 2017-09-17)
DX: J15.6 Pneumonia due to other Gram-negative bacteria (principal); J96.20 Acute and chronic respiratory failure, unspecified whether with hypoxia or hypercapnia; J93.12 Secondary spontaneous pneumothorax; J38.6 Stenosis of larynx; Y95 Nosocomial condition; E87.6 Hypokalemia; S73.005S Unspecified dislocation of left hip, sequela; V43.52XS Car driver injured in collision with other type car in traffic accident, sequela; J98.4 Other disorders of lung; S09.90XS Unspecified injury of head, sequela; S72.052S Unspecified fracture of head of left femur, sequela; S90.822A Blister (nonthermal), left foot, initial encounter; J69.0 Pneumonitis due to inhalation of food and vomit
CPT/HCPCS: 31623; 36415; 71045; 71046; 71260; 73522; 74230; 76001; 80048; 80053; 82550; 82553; 82948; 83605; 83735; 84484; 85025; 85379; 85610; 85730; 87040; 87070; 87102; 87116; 87205; 87206; 87335; 87390; 88112; 88305; 88312; 93005; 94640; 96361; 96365; 96367; 96375; 96376; 97139; 99285; G0433; G0435; J0171; J1100; J1170; J1644; J2001; J2185; J2250; J2405; J2920; J3480; J7030; Q9967